=== PATIENT | male | born 1965 ===

== ENCOUNTER 2022-01-19 15:14 | Emergency (ER) | payer OTHER ==
[2022-01-19] MEDS: HYDROmorphone 2 MG/ML SDV IM ONE (15:56)
[2022-01-19] MEDS: HYDROmorphone 2 MG/ML SDV IVPUSH ONE ×2 (16:15→16:57)
[2022-01-19] MEDS: LORazepam 2 MG/ML SDV IVPUSH ONE (16:33)
== END 2022-01-19 18:43 ==
LOC: LB.ED 15:14
DX: S72.001A Fracture of unspecified part of neck of right femur, initial encounter for closed fracture (principal); Z79.82 Long term (current) use of aspirin; Z79.899 Other long term (current) drug therapy; Z20.822 Contact with and (suspected) exposure to COVID-19; W11.XXXA Fall on and from ladder, initial encounter
CPT/HCPCS: 73502-RT; 96372; 96374; 96375; 96376; 99285-25; A0425; A0429; J1170; J2060; U0002